=== PATIENT | female | born 1985 | race Caucasian/White ===

== ENCOUNTER → 2024-05-14 15:04 | Outpatient (REF) | payer BC, SELFPAY | LOC: WDC 15:04 | PROVIDERS: ATTENDING PHYSICIAN Nurse Practitioner Family | DX: Z12.31 Encounter for screening mammogram for malignant neoplasm of breast (principal) | CPT/HCPCS: 77063; 77067 ==

== ENCOUNTER 2024-09-27 02:46 | Emergency (ER) | payer BC, SELFPAY ==
[2024-09-27 02:48] VITALS: BP 132/90
--- NOTE | 2024-09-27 03:59 | ED.GENMED ---
History of Present Illness
General
Chief Complaint: Abdominal Symptoms
Source: patient
Exam Limitations: none
Time Seen by Provider: 09/27/24 03:11
Nursing documentation reviewed up to this point in time: agreed with
History of Present Illness
History of Present Illness:
Pleasant 39-year-old female presents to the emergency department with abdominal pain and vomiting. She has been followed by her primary care provider who provided Zofran and Bentyl for her abdominal pain and spasm. She does report some right upper
quadrant discomfort but denies known gallstones. Denies previous abdominal surgeries. Patient states that the Zofran and Bentyl seem to be working some of the time. She does report some bloating and intestinal spasms. The Bentyl has seemed to
help with that. Denies fever or chills. Has been eating sporadically. She was able to eat a small meal yesterday without too much discomfort.
Past History
Past History
ED Past Medical History: None
ED Past Surgical History: Orthopedic (Knee surgery) and Urological (Ureteroscopy); Negative Cholecystectomy, , Gynecological or Tonsilectomy
Social History
Tobacco: Non-smoker
Alcohol: None
Drug: None
Personal:
Living: with family
Employment: Employed
Family History
Family History: Other (Noncontributory)
Review of Systems
Review of Systems
Allergies reviewed?: Yes
All Other Systems: ROS reviewed and negative except as documented in HPI and ROS
Constitutional: Reports no symptoms
EENT: Reports no symptoms
Respiratory: Reports no symptoms
Cardiac: Reports no symptoms
ABD/GI: Reports abdominal pain, nausea and vomiting
: Reports no symptoms
Musculoskeletal: Reports no symptoms
Skin: Reports no symptoms
Neurological: Reports no symptoms
Endocrine: Reports no symptoms
Hematologic/Lymphatic: Reports no symptoms
Psychiatric: Reports no symptoms
Phy Exam
General Physical Exam
General Presentation: well appearing and no apparent distress
General Skin: warm and dry
General Habitus: normal
General Mental: alert
General Hydration: appears well hydrated
ENT Exam
ENT Exam: EOMI, pharynx normal, neck supple and normocephalic
Eye Exam
Eye Exam: PERRL, cornea clear and conjunctiva normal
Cardiovascular Exam
Cardiovascular Exam: regular rate/rhythm, no edema, no murmur and normal peripheral pulses
Pulmonary Exam
Pulmonary Exam: lungs clear, no respiratory distress, no rales, no crackles, no rhonchi, no stridor, no wheezing and no cough
Gastrointestinal Exam
Gastrointestinal Exam: normal bowel sounds, non tender, soft, no organomegaly, no pulsatile mass and non distended
Palpation: generalized: Minimal tenderness
Neurological Exam
Neurological Exam: alert, oriented x3, no motor deficits and speech normal
Musculoskeletal Exam
Musculoskeletal Exam: full ROM and no edema
Skin Exam
Skin Exam: normal color, warm/dry, no rash and no petechia
Psychiatric Exam
Psychiatric Exam: normal mood/affect
Course
Orders/Labs/Results
Orders:
Orders
09/27/24 03:03
0.9% Sodium Chloride 1000 ml [Nss] 1,000 ml IV BOLUS
Test Result ONCE
09/27/24 03:04
Urinalysis Reflex To Culture Urgent
US Abdomen Complete/Upper Urgent
Comment:
Reason For Exam: RUQ oain
09/27/24 04:11
CT Abd/pelvis W Iv Cont Urgent
Comment:
Reason For Exam: abd pain, doarrhea, bloating
09/27/24 04:54
Complete Blood Count/With Diff Urgent
Comprehensive Metabolic Panel Urgent
HCG, Serum Qualitative Screen Urgent
Lipase Urgent
PTT Urgent
Prothrombin Time Urgent
Troponin I Urgent
Abnormal Lab Results
09/27/24
04:54
Abs Immat Gran (auto) 0.1 H 10^3/uL
(0-0.05)
Absolute Monos (auto) 0.8 H 10^3/uL
(0.1-0.6)
Immature Gran % 0.6 H %
(0-0.5)
Monocytes % 9.8 H %
(1.7-9.3)
09/27/24 04:54
09/27/24 04:54
Vital Signs
Initial and Last Documented VS:
Initial Vital Signs
Temp Pulse Resp BP Pulse Ox
97.7 F 80 20 132/90 97
09/27/24 02:48 09/27/24 02:48 09/27/24 02:48 09/27/24 02:48 09/27/24 02:48
Last Documented Vital Signs
Temp Pulse Resp BP Pulse Ox
97.7 F 80 20 132/90 98
09/27/24 02:48 09/27/24 02:48 09/27/24 02:48 09/27/24 02:48 09/27/24 04:10
*Critical Care Note
Total Time (30-74mins, 75-104mins- exclusive of procedures): Not Applicable
Update Note
Update Note:
Additional Information (per [facility]):
Ultrasound abdomen
IMPRESSION:
Gallbladder is normal. Negative Hargrove sign. Common bile duct is normal at 4 mm.
Finalized at 3:[address] abdomen and pelvis with IV contrast
IMPRESSION:
Appendix normal. No bowel obstruction or diverticulitis. Stomach decompressed.
Liver, gallbladder, spleen, adrenal glands, and kidneys appear normal. The abdominal aorta is of normal caliber. Lung bases clear. Scattered mesenteric lymph nodes are likely reactive.
Finalized at 6:20 AM EST
ED Attending Note
-
Portions of this chart may have been created with voice recognition software.� Occasional wrong word or��sound alike� substitutions may have occurred due to the inherent limitations of voice recognition software.
Discharge Plan
Departure
Patient Disposition: Home (Routine Discharge)
Date of Disposition: 09/27/24
Time of Disposition: 06:20
Patient with high blood pressure during this ER visit?: Yes
Condition: Good
Discharge Problem:
Abdominal pain
Instructions: [place] Diet, Abdominal Pain, BLOOD PRESSURE
Prescriptions:
No Action
Vitamin 1 EACH tablet
1 ea PO DAILY
ondansetron 4 mg tablet,disintegrating
4 mg PO ONCE PRN (Reason: nausea and vomiting) Qty: 14 0RF
pantoprazole [Protonix] 40 mg tablet,delayed release (DR/EC)
40 mg PO DAILY Qty: 20 0RF
dicyclomine 10 mg Capsule
10 mg PO QID Qty: 30 0RF
oxycodone 5 mg Tablet
5 mg PO Q4HPRN PRN (Reason: moderate pain) Qty: 20 0RF
Referrals:
Shanthi Denny CRNP [Family Provider] -
Stand Alone Forms: Return to Work
Activity Restrictions/Additional Instructions:
Continue to take the Zofran and Bentyl you were previously prescribed.
It was a pleasure meeting you and taking part in your care. We hope for your continued healing and wellness.
Please read discharge instructions in their entirety. However, they are for general education and may not describe your exact diagnosis at discharge. Information on your ER visit and medical conditions were discussed with you along with appropriate
follow up information...
If indicated, please take your medications as instructed and indicated on discharge paperwork.
Please schedule a follow up appointment as directed. Call to schedule an appointment
Please return to the emergency department with ANY change in, persisting, or worsening of symptoms. If any of your symptoms do not improve, or persist, or become more severe within 6-12 hours, please return to the emergency department for further
care.
Please return to the emergency department if you develop a headache, neck pain/stiffness, fever greater than 100.4F, chest pain, shortness of breath, persistent nausea, vomiting, slurred speech, difficulty walking, numbness/tingling, weakness, signs
of infection or any other symptoms that are worrisome to you.
If you have any questions or concerns please do not hesitate to call the Hospital at or E-mail me directly at [email or web address]
Interventions
Interventions:
*Risk Screen - Suicide Last Done: 09/27/24 02:48
*General Assessment Last Done: 09/27/24 02:48
*Neglect/Abuse Screening Last Done: 09/27/24 02:48
ED- Fall Risk Assessment Last Done: 09/27/24 02:48
*ED COVID-19 Vaccine History Last Done: 09/27/24 02:48
MX-Riqout-Teolivnmea Assessment Last Done: 09/27/24 04:10
Discharge Date and Time
Print Language: SLOVAK
[2024-09-27] MEDS: NSS 1000 IV (04:53)
[2024-09-27 05:06] LABS: % Basophils 0.5 % (0-2); % Eosinophils 1.1 % (0-6); % Immature Granulocytes 0.6 % (0-0.5); % Lymphocytes 25.5 % (20.5-51.1); % Monocytes 9.8 % (1.7-9.3); % Neutrophils 62.5 % (42.2-75.2); Absolute Eosinophils 0.1 10^3/uL (0-0.7); Absolute Immature Granulocytes 0.1 10^3/uL (0-0.05); Absolute Monocytes 0.8 10^3/uL (0.1-0.6); Absolute Neutrophils 4.9 10^3/uL (1.4-6.5); Hematocrit 40.4 % (37.0-47.0); Hemoglobin 13.9 g/dL (12.0-16.0); Mean Corp Hgb Conc. 34.4 g/dL (33.0-37.0); Mean Corpuscular Hgb 29.6 pg (27.0-31.0); Mean Corpuscular Volume 86.1 fL (81.0-99.0); Mean Platelet Volume 9.7 fL (7.4-10.4); Nucleated Red Blood Cells % 0 %; Platelet Count 271 10^3/uL (130-400); Red Blood Cell Count 4.69 10^6/uL (4.20-5.40); Red Cell Dist. Width 12.9 % (11.5-14.5); White Blood Cell Count 7.8 10^3/uL (4.8-10.8)
[2024-09-27 05:15] LABS: HCG, Serum Qualitative Screen Negative
[2024-09-27 05:18] LABS: ALT (SGPT) 25 U/L (0-35); AST (SGOT) 34 U/L (14-36); Albumin 3.8 g/dl (3.5-5.0); Alkaline Phosphatase 57 U/L (38-126); Blood Urea Nitrogen 8 mg/dl (7-17); Calcium 8.9 mg/dl (8.4-10.2); Carbon Dioxide 27 mmol/L (22-30); Chloride 105 mmol/L (98-107); Glucose 92 mg/dl (70-99); Lipase 52 U/L (23-300); Potassium 3.8 mmol/L (3.5-5.1); Sodium 140 mmol/L (135-145); Total Bilirubin 0.2 mg/dl (0.2-1.3); Total Protein 6.4 g/dl (6.3-8.2); eGFR > 60.00
[2024-09-27 05:19] LABS: INR 0.93; PT 12.9 Sec (11.4-14.6)
[2024-09-27 05:20] LABS: APTT 26.8 Sec (23.4-35.0)
[2024-09-27 05:28] LABS: Troponin I < 0.012 ng/ml
[2024-09-27 06:00] VITALS: BP 130/88
== END 2024-09-27 07:23 | disposition home or self-care (01) ==
LOC: EMR 02:46
PROVIDERS: EMERGENCY PHYSICIAN Student in an Organized Health Care Education/Training Program; FAMILY PHYSICIAN Nurse Practitioner Family
DX: R10.9 Unspecified abdominal pain (principal); R11.2 Nausea with vomiting, unspecified
CPT/HCPCS: 99284; 74177; 76700; 80053; 83690; 84484; 84703; 85025; 85610; 85730; Q9967

== ENCOUNTER → 2025-07-04 14:07 | Outpatient (REF) | payer BC, SELFPAY | LOC: WDC 14:07 | PROVIDERS: ATTENDING PHYSICIAN Family Medicine | DX: Z12.31 Encounter for screening mammogram for malignant neoplasm of breast (principal) | CPT/HCPCS: 77063; 77067 ==